=== PATIENT | male | born 1975 | race Caucasian/White ===

== ENCOUNTER 2016-10-04 10:45 | Observation (INO) | payer SELFPAY ==
[2016-10-04 10:48] VITALS: BMI 22.2
--- NOTE | 2016-10-04 11:02 | ED PDOC ---
Upper Extremity Pain/Injury Time Seen by Provider: 10/04/16 10:56 Chief Complaint (Nursing): Upper Extremity Problem/Injury Chief Complaint (Provider): Right elbow injury History Per: Patient History/Exam Limitations: no limitations Onset/Duration Of Symptoms: Mins Current Symptoms Are (Timing): Still Present Quality: "Pain" Severity: Moderate Exacerbating Factor(s): Strenuous Use Of Affected Area Additional History Per: Patient Additional Complaint(s): The pt is a 41yo male, presents to the ED for evaluation of right elbow pain s/ p injuring it [employer]. Pt reports he was playing soccer and was at the edge of the field when he got pushed onto the fence. While attempting to break his fall, pt used his right elbow resulting in injury to right elbow. Pt able to move his fingers. Denies any other medical complaints. Past Medical History Reviewed: Historical Data, Nursing Documentation, Vital Signs Vital Signs: Last Vital Signs Temp 98.9 F 10/04/16 10:48 Pulse 105 H 10/04/16 10:48 Resp 18 10/04/16 10:48 BP 155/103 H 10/04/16 10:48 Pulse Ox 100 10/04/16 10:48 - Medical History PMH: No Chronic Diseases - Surgical History Surgical History: No Surg Hx - Family History Family History: States: Unknown Family Hx - Allergies Allergies/Adverse Reactions: Allergies Allergy/AdvReac Type Severity Reaction Status Date / Time No Known Allergies Allergy Verified 10/04/16 10:54 Review of Systems ROS Statement: Except As Marked, All Systems Reviewed And Found Negative Musculoskeletal: Positive for: Arm Pain (right elbow pain) Physical Exam - Reviewed Nursing Documentation Reviewed: Yes Vital Signs Reviewed: Yes - Physical Exam Appears: Positive for: Well, Non-toxic, Uncomfortable Head Exam: Positive for: ATRAUMATIC, NORMAL INSPECTION, NORMOCEPHALIC Skin: Positive for: Normal Color Neck: Positive for: Normal, Supple Respiratory: Negative for: Respiratory Distress Pulses-Radial (R): 2+ Neurologic/Psych: Positive for: Alert, Oriented - Laboratory Results Result Diagrams: 10/04/16 11:00 10/04/16 11:00 - ECG O2 Sat by Pulse Oximetry: 100 (RA) Pulse Ox Interpretation: Normal Medical Decision Making Medical Decision Making: Time: 1102 Impression: Right elbow injury r/o fracture Plan: * XR Right elbow * XR Right humerus * XR Right forearm * reassess Time: Scribe Attestation: Documented by Ying Logan acting as a scribe for Elisabet Medrano MD. Provider Attestation: All medical record entries made by the Scribe were at my direction and personally dictated by me. I have reviewed the chart and agree that the record accurately reflects my personal performance of the history, physical exam, medical decision making, and the department course for this patient. I have also personally directed, reviewed, and agree with the discharge instructions and disposition. 6.00 patient is awake. He has steady gait. Will discharge. Procedures - Joint Reduction Conscious Sedation: Yes (8 mg Morphine and 6 mg Versed given; reduction attempted at right elbow) Reduction Attempts: 2 (joint reduced on second attempt) Pre-Procedure NV Exam: Yes Post Joint Reduction Film: joint reduced (reduced on second attempt) Progress: Attempt 1: 1430 Attempted to reduce without success as patient was still too awake. Will reattempt. Attempt 2: 1540 Pt given Ketamine and Fentanyl. Joint was reduced upon second attempt. Neurovascular senses intact post-reduction. Disposition - Clinical Impression Clinical Impression: Elbow dislocation - Patient ED Disposition Is Patient to be Admitted: No Doctor Will See Patient In The: Office Counseled Patient/Family Regarding: Diagnosis, Need For Followup, Rx Given - Disposition Disposition: Routine/Home Disposition Time: 18:22 Condition: IMPROVED - POA Present On Arrival: Falls Or Trauma
[2016-10-04 11:26] LABS: HEMATOCRIT 45.8 % (35.0-51.0); MEAN CELL VOLUME 86.5 fl (80.0-94.0); MEAN CORPUSCULAR HEMOGLOBIN 28.9 pg (27.0-31.0); MEAN CORPUSCULAR HGB CONC 33.5 g/dL (33.0-37.0); RED CELL DISTRIBUTION WIDTH 13.7 % (11.5-14.5); WHITE BLOOD COUNT 11.6 K/uL (4.8-10.8)
[2016-10-04 11:34] LABS: BLOOD UREA NITROGEN 30 mg/dl (9-20); CARBON DIOXIDE 19 mmol/L (22-30); CHLORIDE 107 mmol/L (98-107); GFR AFRICAN-AMERICAN > 60; GLUCOSE,RANDOM 150 mg/dL (75-110); SODIUM 142 mmol/l (132-148)
[2016-10-04] MEDS ORDERED: Sodium Chloride 0.9% 1,000 ML IV STA (12:36)
[2016-10-04] MEDS ORDERED: Midazolam 2 MG/2 ML VIAL IV ONE ×3 (13:37→14:40)
[2016-10-04] MEDS ORDERED: Midazolam 2 MG/2 ML VIAL ONE (14:06)
[2016-10-04] MEDS ORDERED: Midazolam 2 MG/2 ML VIAL IV STA (14:20)
[2016-10-04] MEDS ORDERED: Ketamine 50 mg/ml Inj (10 ml) IVPB STA (14:41)
[2016-10-04] MEDS ORDERED: Ketamine 50 mg/ml Inj (10 ml) ONE (14:47)
--- NOTE | 2016-10-04 15:30 | RAD ---
PROCEDURE: HISTORY: fall against object with right arm COMPARISON: TECHNIQUE: FINDINGS: Radial and ulnar dislocations at the elbow no gross fracture but correlation with CT scan is recommended. Extensive soft tissue swelling. IMPRESSION: As above.
--- NOTE | 2016-10-04 15:31 | RAD ---
HISTORY: fall against object with right arm COMPARISON: No prior FINDINGS: BONES: Normal. No fracture. JOINTS: Normal. No osteoarthritis. SOFT TISSUE: Normal. OTHER FINDINGS: None . IMPRESSION: Normal Bone Xray. See elbow radiograph report.
--- NOTE | 2016-10-04 15:32 | RAD ---
HISTORY: fall against object with right arm COMPARISON: No prior FINDINGS: BONES: Normal. No fracture. JOINTS: Normal. No osteoarthritis. SOFT TISSUE: Normal. OTHER FINDINGS: None . IMPRESSION: Normal Bone Xray. See elbow x-ray report.
--- NOTE | 2016-10-04 15:35 | RAD ---
PROCEDURE: HISTORY: reduction COMPARISON: TECHNIQUE: FINDINGS: Postreduction views demonstrates persistent dislocation of the ulna with respect to trochlea. The ulna is dislocated posteriorly. The radial head is also dislocated posteriorly. Extensive soft tissue swelling. IMPRESSION: See above.
[2016-10-04 19:26] VITALS: BP 136/78; RESP 20; TEMP 97.6
[2016-10-04 19:28] VITALS: PULSE 78; O2SAT 98
--- NOTE | 2016-10-05 10:21 | RAD ---
PROCEDURE: Radiographs of the right elbow. HISTORY: post reduction COMPARISON: Comparison is made to the previous study dated 10/04/2016 at 14:28 FINDINGS: BONES: Status post reduction of the previously seen right elbow dislocation. No evidence of dislocation in the current study. Normal alignment of the right elbow. There is a cast seen at the posterior aspect of the right elbow. JOINTS: Normal. No osteoarthritis. SOFT TISSUES: Normal. JOINT EFFUSION: Small joint effusion is noted. OTHER FINDINGS: None. IMPRESSION: Status post reduction of the right elbow dislocation seen in the previous study.
== END 2016-10-04 18:25 | disposition home or self-care (01) ==
LOC: H.ER 10:45 → H.EROBSV 14:30
PROVIDERS: ADMIT Emergency Medicine; ATTEND Emergency Medicine
DX: S53.124A Posterior dislocation of right ulnohumeral joint, initial encounter (principal); W19.XXXA Unspecified fall, initial encounter; Y93.66 Activity, soccer; Y92.322 Soccer field as the place of occurrence of the external cause; Y99.8 Other external cause status
CPT/HCPCS: 73060; 73070; 73090; 80048; 85027; 94770; 96372; 96374; 96375; 96376; 99284; G0378; J1885; J2250; J2270; J3010; J7040